=== PATIENT | female | born 1995 | race Caucasian/White ===

== ENCOUNTER 2018-01-15 14:18 | Emergency (ER) | payer BC ==
[2018-01-15 14:31] VITALS: BP 146/88; PULSE 93; TEMP 98.2; BMI 28.7
[2018-01-15] MEDS ORDERED: KETOROLAC TROMETHAMINE 60 MG/2 ML VIAL IM ONE (15:36)
--- NOTE | 2018-01-15 15:36 | PDOC ---
History of Present Illness - General Chief Complaint: Back Pain Stated Complaint: BACK PAIN Time Seen by Provider: 01/15/18 15:20 History Source: Patient Exam Limitations: No Limitations - History of Present Illness Initial Comments: CHIEF COMPLAINT: 22 y/o afebrile female with no significant PMH c/o right low back pain for the past 3 days. HISTORY OF PRESENT ILLNESS: THe patient states she started [employer] class again after a few week hiatus 4 days ago. morning she woke up with right low back pain. She saw her doctor yesterday who checked her urine, and did a kidney ultrasound - all were negative. She was prescribed ibuprofen with pepcid, which she said she takes sporatically with little relief. The pain is worse with movement and palpation. Vital signs on arrival are within normal limits. REVIEW OF SYSTEMS: GENERAL/CONSTITUTIONAL: No fever/chills. No weakness. No weight change. HEAD, EYES, EARS, NOSE AND THROAT: No change in vision. No ear pain or discharge. No sore throat. CARDIOVASCULAR: No chest pain or shortness of breath. RESPIRATORY: No cough, wheezing, or hemoptysis. GASTROINTESTINAL: No abd pain, nausea, vomiting, diarrhea. GENITOURINARY: No dysuria, frequency, or change in urination. MUSCULOSKELETAL: No joint or muscle swelling or pain. +right low back pain SKIN: No rash or easy bruising. NEUROLOGIC: No headache, vertigo, loss of consciousness, or loss of sensation. PHYSICAL EXAM: GENERAL: The patient is awake, alert, and fully oriented, in no acute distress. SHe is well appearing and ambulatory. HEAD: Normal with no signs of trauma. ENT: Pupils equal, round and reactive to light, extraocular movements intact, sclera anicteric, conjunctiva clear. Neck supple. LUNGS: Clear to auscultation bilaterally. Normal excursion. No respiratory distress or use of accessory muscles. CV: RRR, S1/S2, no MRG. Cap refill < 2 sec. ABDOMEN: Soft, non-distended, non-tender even to deep palpation, no hepatomegaly or splenomegaly, no masses. BACK: +reproducible pain with palpation of right lumbar paravertebral muscles. No midline lumbar spine TTP or step offs. No CVA TTP b/l. EXTREMITIES: Normal range of motion, no edema. NEUROLOGICAL: Normal speech, normal gait. CN II-XII grossly intact. PSYCH: Normal mood, normal affect. SKIN: Warm, dry, normal turgor, no rashes or lesions noted. Past History - Past Medical History Allergies/Adverse Reactions: Allergies Allergy/AdvReac Type Severity Reaction Status Date / Time No Known Allergies Allergy Verified 01/15/18 14:32 Home Medications: Ambulatory Orders Norethindrone-E.estradiol-Iron [Junel Fe 1.5 mg-30 Mcg Tablet] 1 tab PO HS 01/15 Biotin [Nail-Ex] 5,000 mcg PO DAILY 08/14/14 Hydrocodone Bit/Acetaminophen [Vicodin 5-300mg -] 1 - 2 tab PO Q6H #60 tab 08/15 Amox-Tr/K Cl [Augmentin 875Mg Tablet] 1 tab PO BID #14 tablet 12/08/15 Cyclobenzaprine HCl [Flexeril 10 mg] 10 mg PO TID PRN #10 tablet 01/15/18 Ibuprofen [Motrin -] 600 mg PO TID #20 tablet 01/15/18 Anemia: No Asthma: No Cancer: No Cardiac Disorders: No CVA: No COPD: No CHF: No Diabetes: No GI Disorders: Yes (H PYLORI) Disorders: No HTN: No Hypercholesterolemia: No Liver Disease: No Seizures: No Thyroid Disease: No - Suicide/Smoking/Psychosocial Hx Smoking Status: No Smoking History: Never smoked Have you smoked in the past 12 months: No Number of Cigarettes Smoked Daily: 0 Information on smoking cessation initiated: No Hx Alcohol Use: No Drug/Substance Use Hx: No Substance Use Type: Alcohol Hx Substance Use Treatment: No Trauma Specific PMHX - Complaint Specific PMHX Back Injury: No Neck Injury: No *Physical Exam - Vital Signs Last Vital Signs Temp Pulse Resp BP Pulse Ox 98.2 F 93 H 16 146/88 100 01/15/18 14:29 01/15/18 14:29 01/15/18 14:29 01/15/18 14:29 01/15/18 14:29 Medical Decision Making - Medical Decision Making A/P: 22 y/o female with right lumbar musculoskeletal strain. , UA and kidney ultrasound were performed by her doctor yesterday and were normal. WIll give TOradol in the ER. WIll send rx for ibuprofen and flexeril. Instructed her to discontinue taking the medication prescribed by her doctor. Suggested she not drive while taking flexeril. Suggested heating pad and massage to affected area and return to the ER with any worsening or concerning symptoms. The patient verbalizes understanding of all instructions, has no further questions and is awaiting discharge. 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
[2018-01-15] MEDS ORDERED: KETOROLAC TROMETHAMINE 60 MG/2 ML VIAL ONE (15:37)
== END 2018-01-15 16:10 | disposition home or self-care (01) ==
LOC: JERFT 14:18
PROC: 3E0233Z Introduction of Anti-inflammatory into Muscle, Percutaneous Approach (ICD-10-PCS; principal; 2018-01-15)
DX: M62.830 Muscle spasm of back (principal)
CPT/HCPCS: 99281-25

== ENCOUNTER 2020-10-20 01:15 | Emergency (ER) | payer BC ==
[2020-10-20 01:26] VITALS: BP 112/67; PULSE 73; TEMP 99; BMI 30.1
[2020-10-20] MEDS ORDERED: KETOROLAC TROMETHAMINE 30 MG/1 ML VIAL IM ONE (01:31)
[2020-10-20] MEDS ORDERED: predniSONE 20 MG TABLET (UD) PO ONE (01:32)
[2020-10-20] MEDS ORDERED: METHOCARBAMOL 500 MG TABLET PO ONE (01:32)
[2020-10-20] MEDS ORDERED: METHOCARBAMOL 500 MG TABLET ONE (01:50)
[2020-10-20] MEDS ORDERED: KETOROLAC TROMETHAMINE 30 MG/1 ML VIAL ONE (01:50)
[2020-10-20] MEDS ORDERED: predniSONE 20 MG TABLET (UD) ONE (01:50)
== END 2020-10-20 01:56 | disposition home or self-care (01) ==
LOC: FER 01:15
PROC: 3E033NZ Introduction of Analgesics, Hypnotics, Sedatives into Peripheral Vein, Percutaneous Approach (ICD-10-PCS; principal; 2020-10-20)
DX: M54.31 Sciatica, right side (principal)
CPT/HCPCS: 99284-25